=== PATIENT | male | born 1980 | race Caucasian/White ===

== ENCOUNTER 2017-03-16 10:27 | Inpatient (IN) | payer OTHER ==
--- NOTE | 2017-03-16 14:39 | HP ---
CIWA Score - CIWA Score Nausea/Vomitin-Int. Nausea w/Dry Heave Muscle Tremors: 4-Moderate,w/Arms Extend Anxiety: 5 Agitation: 4-Moderately Restless Paroxysmal Sweats: 1-Minimal Palms Moist Orientation: 0-Oriented Tacttile Disturbances: 3-Moderate Itch/Numb/Burn Auditory Disturbances: 0-None Visual Disturbances: 0-None Headache: 0-None Present CIWA-Ar Total Score: 21 Admission ROS BHS - HPI Chief Complaint: DETOX TX FOR ALCOHOL AND XANAX DEPENDENCE Allergies/Adverse Reactions: Allergies Allergy/AdvReac Type Severity Reaction Status Date / Time No Known Allergies Allergy Verified 03/16/17 12:16 History of Present Illness: 36 Y/O H/M WITH A HX OF ALCOHOL,XANAX A HEROIN DEPENDENCE ON [facility] SEEKING DETOX TX . FIRST TIME HERE. Exam Limitations: No Limitations - Ebola screening Have you traveled outside of the country in the last 21 days: No Have you had contact with anyone from an Ebola affected area: No Do you have a fever: No - Review of Systems Constitutional: Chills, Diaphoresis, Loss of Appetite, Night Sweats, Changes in sleep EENT: reports: Blurred Vision, Tearing, Nose Congestion Respiratory: reports: No Symptoms reported Cardiac: reports: Lightheadedness GI: reports: Constipated, Diarrhea, Nausea, Vomiting : reports: No Symptoms Reported Musculoskeletal: reports: Back Pain, Joint Pain, Muscle Pain Integumentary: reports: No Symptoms Reported Neuro: reports: Headache, Tremors Endocrine: reports: No Symptoms Reported Hematology: reports: No Symptoms Reported Psychiatric: reports: Orientated x3, Anxious, Depressed Other Systems: Reviewed and Negative Patient History - Patient Medical History Hx Anemia: No Hx Asthma: No Hx Chronic Obstructive Pulmonary Disease (COPD): No Hx Cardiac Disorders: No Hx Hypertension: No Hx Hypercholesterolemia: No HX Cerebrovascular Accident: No Hx Seizures: No Hx Diabetes: No Hx Gastrointestinal Disorders: No Hx Genitourinary Disorders: No Hx Sexually Transmitted Disorders: No Hx Renal Disease (ESRD): No Hx Thyroid Disease: No Hx Human Immunodeficiency Virus (HIV): No (NEGATIVE HX) Hx Hepatitis C: No Hx Depression: No Hx Suicide Attempt: No Hx Bipolar Disorder: No Hx Schizophrenia: No - Patient Surgical History Past Surgical History: No Hx Neurologic Surgery: No Hx Cataract Extraction: No Hx Cardiac Surgery: No Hx Lung Surgery: No Hx Breast Surgery: No Hx Breast Biopsy: No Hx Abdominal Surgery: No Hx Appendectomy: No Hx Cholecystectomy: No Hx Genitourinary Surgery: No Hx Orthopedic Surgery: No Anesthesia Reaction: No - PPD History Previous Implant?: Yes Documented Results: Negative w/o proof Implanted On Prior [facility] Admission?: No PPD to be Administered?: Yes - Reproductive History Patient is a Female of Child Bearing Age (11 -55 yrs old): No (MALE) - Smoking Cessation Smoking history: Smoker current status UNK Have you smoked in the past 12 months: Yes If you are a former smoker, when did you quit?: 12/2016-ON [facility] AT HOME. Hx Chewing Tobacco Use: No Initiated information on smoking cessation: No 'Breaking Loose' booklet given: 03/16/17 - Substance & Tx. History Hx Alcohol Use: Yes (VODKA) Hx Substance Use: Yes (XANAX/HEROIN) Substance Use Type: Alcohol, Heroin, Tranquilizers Hx Substance Use Treatment: Yes (ON [facility]) - Substances Abused Alcohol Route: Oral Frequency: Daily Amount used: Vodka(2 pints) Age of first use: 19 Date of Last Use: 03/15/17 Alprazolam (Xanax) Route: Oral Frequency: Daily Amount used: 2-3 stiks Age of first use: 35 Date of Last Use: 03/16/17 Heroin Route: Inhalation Frequency: Daily Amount used: 8-10 bags Age of first use: 26 Date of Last Use: 03/16/17 Family Disease History - Family Disease History Family Disease History: Diabetes: Grandparent Admission Physical Exam [facility] Physical General Appearance: Yes: Moderate Distress, Obese, Irritable, Anxious HEENTM: Yes: EOMI, Normocephalic, DANIEL, Pharynx Normal, Nasal Congestion Respiratory: Yes: Chest Non-Tender, Lungs Clear, Normal Breath Sounds, No Respiratory Distress Neck: Yes: Supple, Trachea in good position Breast: Yes: Breast Exam Deferred Cardiology: Yes: Regular Rhythm, Regular Rate, S1, S2 Abdominal: Yes: Normal Bowel Sounds, Non Tender, Soft Genitourinary: Yes: Other (N/C) Musculoskeletal: Yes: full range of Motion, Gait Steady Extremities: Yes: Normal Range of Motion, Non-Tender Neurological: Yes: non morse intercept technician II-XII NML intact, Fully Oriented, Alert, Motor Strength 5/5 Integumentary: Yes: Dry, Warm Lymphatic: Yes: Within Normal Limits - Diagnostic (1) Alcohol dependence with uncomplicated withdrawal Current Visit: Yes Status: Acute (2) Sedative, hypnotic or anxiolytic dependence with withdrawal, uncomplicated Current Visit: Yes Status: Acute (3) Methadone maintenance therapy patient Current Visit: Yes Status: Chronic Cleared for Admission S - Detox or Rehab [facility] Level of Care: Medically Managed Detox Regimen/Protocol: Valium
[2017-03-16] MEDS ORDERED: guaiFENesin/D-METHORPHAN HB 10 ML UNIT-DOSE CUPS PO PRN (14:50)
[2017-03-16] MEDS ORDERED: hydrOXYzine PAMOATE 25 MG CAPSULE (FP) PO PRN (14:50)
[2017-03-16] MEDS ORDERED: ACETAMINOPHEN 325 MG TABLET (FP) PO PRN (14:50)
[2017-03-16] MEDS ORDERED: P-EPHED 60MG/TRIPROLIDI 2.5MG TABLET PO PRN (14:50)
[2017-03-16] MEDS ORDERED: MAGNESIUM HYDROX 2400MG/30ML ORAL SUSPENSION 30 ML CUP PO PRN (14:50)
[2017-03-16] MEDS ORDERED: MENTHOL/PHENOL 1 EACH UD MM PRN (14:50)
[2017-03-16] MEDS ORDERED: LOPERAMIDE HCL 2 MG CAPSULE PO PRN (14:50)
[2017-03-16] MEDS ORDERED: MAG HYDROX/AL HYDROX/SIMETH 30 ML UNIT-DOSE CUP PO PRN (14:50)
[2017-03-16] MEDS ORDERED: IBUPROFEN 400 MG TABLET (FP) PO PRN (14:50)
[2017-03-16] MEDS ORDERED: MAGNESIUM CITRATE 300 ML BOTTLE PO PRN (14:50)
[2017-03-16] MEDS ORDERED: NICOTINE POLACRILEX 2 MG GUM BUC PRN (14:52)
[2017-03-16] MEDS ORDERED: diazePAM 5 MG TABLET PO ONE (15:07)
[2017-03-16 15:12] VITALS: BMI 40.6
[2017-03-16] MEDS: diazePAM 5 MG TABLET PO SCH ×2 (15:45→22:26)
[2017-03-16] MEDS: NICOTINE 14 MG/24 HOURS TOPICAL PATCH TD SCH (15:48)
[2017-03-16] MEDS: THIAMINE HCL 100 MG TABLET (FP) PO SCH (22:26)
[2017-03-16] MEDS: diphenhydrAMINE HCL 50 MG CAPSULE PO PRN (22:27)
[2017-03-16] MEDS: diazePAM 5 MG TABLET PO PRN (22:28)
[2017-03-17] MEDS: diazePAM 5 MG TABLET PO SCH ×3 (06:02→23:14)
[2017-03-17] MEDS ORDERED: METHADONE HCL 40 MG DISPERSABLE TABLET PO ONE (09:54)
[2017-03-17 10:11] LABS: MCH 27.4 pg (25.7-33.7); MCHC 32.6 g/dl (32.0-35.9); MEAN CELL VOLUME 83.9 fl (80-96); MEAN PLT VOLUME 8.6 fl (7.5-11.1); PLATELET COUNT 228 K/MM3 (134-434); WHITE BLOOD COUNT 8.2 K/mm3 (4.0-10.0)
[2017-03-17 10:35] LABS: URINE APPEARANCE CLEAR; URINE BILIRUBIN NEGATIVE (NEGATIVE); URINE BLOOD NEGATIVE (NEGATIVE); URINE COLOR YELLOW; URINE GLUCOSE (UA) NEGATIVE (NEGATIVE); URINE KETONE NEGATIVE (NEGATIVE); URINE LEUK ESTERASE NEGATIVE (NEGATIVE); URINE NITRITE NEGATIVE (NEGATIVE); URINE PROTEIN NEGATIVE (NEGATIVE); URINE UROBILINOGEN NEGATIVE E.U./dl (0.2-1.0)
[2017-03-17 10:50] LABS: ALBUMIN 3.9 g/dl (3.4-5.0); ALK PHOS 103 U/L (45-117); ANION GAP 8 (8-16); BILIRUBIN,TOTAL 0.3 mg/dL (0.2-1.0); CALCIUM 9.2 mg/dL (8.5-10.1); CO2 34 mmol/L (21-32); COCKROFT - GAULT 259.87; CREATININE 0.7 mg/dL (0.7-1.3); GLUCOSE,RANDOM 79 mg/dL (74-106); SGOT/AST 18 U/L (15-37); SGPT/ALT 42 U/L (12-78); TOT PROT 8.1 g/dl (6.4-8.2)
[2017-03-17] MEDS: PRENATAL VITAMINS W/ FOLIC ACID TABLET (FP) PO SCH (10:50)
[2017-03-17] MEDS: NICOTINE 14 MG/24 HOURS TOPICAL PATCH TD SCH (10:50)
[2017-03-17] MEDS: diazePAM 5 MG TABLET PO PRN ×2 (10:50→17:15)
--- NOTE | 2017-03-17 11:03 | PN ---
S CIWA - CIWA Score Nausea/Vomitin-No Nausea/No Vomiting Muscle Tremors: 4-Moderate,w/Arms Extend Anxiety: 3 Agitation: 4-Moderately Restless Paroxysmal Sweats: 3 Orientation: 0-Oriented Tacttile Disturbances: 0-None Auditory Disturbances: 0-None Visual Disturbances: 0-None Headache: 1-Very Mild CIWA-Ar Total Score: 15 BHS Progress Note (SOAP) Subjective: irritable agitation anxiety sweats body aches shakes Objective: 03/17/17 11:02 Vital Signs Temperature 97.9 F 03/17/17 09:46 Pulse Rate 78 03/17/17 09:46 Respiratory Rate 18 03/17/17 09:46 Blood Pressure 105/58 03/17/17 09:46 O2 Sat by Pulse Oximetry (%) Laboratory Tests 03/17/17 03/17/17 06:00 07:30 WBC 8.2 RBC 5.08 Hgb 13.9 Hct 42.6 MCV 83.9 MCHC 32.6 RDW 14.0 Plt Count 228 MPV 8.6 Urine Color Yellow Urine Appearance Clear Urine pH 6.0 Ur Specific [place] 1.020 Urine Protein Negative Urine Glucose (UA) Negative Urine Ketones Negative Urine Blood Negative Urine Nitrite Negative Urine Bilirubin Negative Urine Urobilinogen Negative Ur Leukocyte Esterase Negative labs pending awake/alert ambulating no acute distress Assessment: 03/17/17 11:03 withdrawal sx Plan: continue detox increase fluids labs pending
--- NOTE | 2017-03-17 12:51 | CONSULT ---
[facility] Psychiatric Consult - Data Date of interview: 03/17/17 Admission source: [facility] Identifying data: First admission to [facility] for this 36 y/o male seeking detox treatment for heroin,alcohol and xanax dependence.Patient is single,a father of two,domiciled,unemployed and supported on Public Assistance. Substance Abuse History: - Smoking Cessation. Smoking history: Smoker current status UNK. Have you smoked in the past 12 months: Yes. If you are a former smoker, when did you quit?: 12/2016-ON [facility] AT HOME. Hx Chewing Tobacco Use : No. Initiated information on smoking cessation: No. 'Breaking Loose' booklet given: 03/16/17. - Substance & Tx. History. Hx Alcohol Use: Yes (VODKA ). Hx Substance Use: Yes (XANAX/HEROIN). Substance Use Type: Alcohol, Heroin, Tranquilizers. Hx Substance Use Treatment: Yes (ON [facility]). - Substances Abused. Alcohol. Route: Oral. Frequency: Daily. Amount used: Vodka(2 pints). Age of first use: 19. Date of Last Use: 03/15/17. Alprazolam ( Xanax). Route: Oral. Frequency: Daily. Amount used: 2-3 stiks. Age of first use: 35. Date of Last Use: 03/16/17. Heroin. Route: Inhalation. Frequency : Daily. Amount used: 8-10 bags. Age of first use: 26. Date of Last Use: . Confirmed by patient. Medical History: Patient endorses good general health. Psychiatric History: Patient denies history of psychiatric hospitalizations.He, however,reports scripts for seroquel to address his chronic insomnia and methadone maintenance (40 mg/day) at the [facility] in [facility].Diagnosed with Anxiety Disorder.Mr Osei denies history of suicide attempts. Physical/Sexual Abuse/Trauma History: Patient denies. Mental Status Exam - Mental Status Exam Alert and Oriented to: Time, Place, Person Cognitive Function: Good Patient Appearance: Well Groomed (overweight and upper extremities covered with tattoos) Mood: Anxious, Apprehensive Affect: Mood Congruent Patient Behavior: Restless, Talkative, Cooperative (medication-seeking, pressuring nursing staff for seroquel at bedtime) Speech Pattern: Clear Voice Loudness: Normal Thought Process: Goal Oriented Thought Disorder: Not Present Hallucinations: Denies Suicidal Ideation: Denies Homicidal Ideation: Denies Insight/Judgement: Poor Sleep: Poorly, Difficulty falling asleep Appetite: Good Muscle strength/Tone: Normal Gait/Station: Normal Psychiatric Findings - Problem List ([place] 1, 2,3) (1) Alcohol dependence with uncomplicated withdrawal Current Visit: Yes Status: Acute (2) Sedative, hypnotic or anxiolytic dependence with withdrawal, uncomplicated Current Visit: Yes Status: Acute (3) Opioid dependence on agonist therapy Current Visit: Yes Status: Acute (4) Insomnia Current Visit: Yes Status: Acute - Initial Treatment Plan Initial Treatment Plan: Psychoeducation.Detoxification in progress.Medication : seroquel 100 mg po hs (patient's request).Side effects/benefits discussed with the patient.Made aware of risk for oversedation/falls,abnormal involuntary movements,metabolic syndrome and cardiovascular adverse events.Mr Osei states that he has well tolerated seroquel in the past.Insists on the inclusion of quetiapine in the current regimen of medications.Observation.
[2017-03-17] MEDS: QUEtiapine FUMARATE 100 MG TABLET (FP) PO SCH (23:14)
[2017-03-17] MEDS: THIAMINE HCL 100 MG TABLET (FP) PO SCH (23:14)
[2017-03-18] MEDS: METHADONE HCL 40 MG DISPERSABLE TABLET PO SCH (06:39)
--- NOTE | 2017-03-18 08:27 | EKG ---
Test Reason : Blood Pressure : / mmHG Vent. Rate : 083 BPM Atrial Rate : 083 BPM P-R Int : 174 ms QRS Dur : 108 ms QT Int : 402 ms P-R-T Axes : 065 -02 028 degrees QTc Int : 472 ms NORMAL SINUS RHYTHM NONSPECIFIC T WAVE ABNORMALITY PROLONGED QT ABNORMAL ECG NO PREVIOUS ECGS AVAILABLE Confirmed by REGINA LEARY, IMTIAZ ([id number]) on 03/18/2017 8:27:08 AM Referred By: Confirmed By:IMTIAZ TAPIA MD
[2017-03-18] MEDS: NICOTINE 14 MG/24 HOURS TOPICAL PATCH TD SCH (10:46)
[2017-03-18] MEDS: PRENATAL VITAMINS W/ FOLIC ACID TABLET (FP) PO SCH (10:46)
[2017-03-18] MEDS: diazePAM 5 MG TABLET PO SCH ×2 (10:46→22:16)
--- NOTE | 2017-03-18 16:27 | PN ---
[facility] CIWA - CIWA Score Nausea/Vomitin Muscle Tremors: 3 Anxiety: 3 Agitation: 3 Paroxysmal Sweats: 3 Orientation: 0-Oriented Tacttile Disturbances: 1-Very Mild Itch/Numbness Auditory Disturbances: 0-None Visual Disturbances: 0-None Headache: 0-None Present CIWA-Ar Total Score: 15 S Progress Note (SOAP) Subjective: INTERRRUPTED SLEEP,SWEATS , RESTLESS Objective: 03/18/17 16:26 Vital Signs Temperature 97 F L 03/18/17 14:09 Pulse Rate 87 03/18/17 14:09 Respiratory Rate 18 03/18/17 14:09 Blood Pressure 121/65 03/18/17 14:09 O2 Sat by Pulse Oximetry (%) Laboratory Tests 03/17/17 03/17/17 03/17/17 06:00 06:00 06:00 WBC 8.2 RBC 5.08 Hgb 13.9 Hct 42.6 MCV 83.9 MCHC 32.6 RDW 14.0 Plt Count 228 MPV 8.6 Sodium 141 Potassium 4.6 Chloride 99 Carbon Dioxide 34 H Anion Gap 8 BUN 15 Creatinine 0.7 Creat Clearance w eGFR > 60 Random Glucose 79 Calcium 9.2 Total Bilirubin 0.3 AST 18 ALT 42 Alkaline Phosphatase 103 Total Protein 8.1 Albumin 3.9 Urine Color Urine Appearance Urine pH Ur Specific [place] Urine Protein Urine Glucose (UA) Urine Ketones Urine Blood Urine Nitrite Urine Bilirubin Urine Urobilinogen Ur Leukocyte Esterase RPR Titer Nonreactive 03/17/17 07:30 WBC RBC Hgb Hct MCV MCHC RDW Plt Count MPV Sodium Potassium Chloride Carbon Dioxide Anion Gap BUN Creatinine Creat Clearance w eGFR Random Glucose Calcium Total Bilirubin AST ALT Alkaline Phosphatase Total Protein Albumin Urine Color Yellow Urine Appearance Clear Urine pH 6.0 Ur Specific [place] 1.020 Urine Protein Negative Urine Glucose (UA) Negative Urine Ketones Negative Urine Blood Negative Urine Nitrite Negative Urine Bilirubin Negative Urine Urobilinogen Negative Ur Leukocyte Esterase Negative RPR Titer PT AOX3 , RESTLESS Assessment: 03/18/17 16:26 WITHDRAWAL SX;S Plan: CONT. DETOX INCREASE FLUIDS FLEXERIL
[2017-03-18] MEDS: CYCLOBENZAPRINE HCL 10 MG TABLET (FP) PO PRN (17:40)
[2017-03-18] MEDS: diazePAM 5 MG TABLET PO PRN (17:40)
[2017-03-18] MEDS: QUEtiapine FUMARATE 100 MG TABLET (FP) PO SCH (22:16)
[2017-03-18] MEDS: THIAMINE HCL 100 MG TABLET (FP) PO SCH (22:16)
[2017-03-19] MEDS: METHADONE HCL 40 MG DISPERSABLE TABLET PO SCH (06:04)
[2017-03-19] MEDS: CYCLOBENZAPRINE HCL 10 MG TABLET (FP) PO PRN (06:10)
[2017-03-19] MEDS: diazePAM 5 MG TABLET PO PRN (06:10)
[2017-03-19] MEDS: diazePAM 5 MG TABLET PO SCH ×2 (11:03→22:45)
[2017-03-19] MEDS: PRENATAL VITAMINS W/ FOLIC ACID TABLET (FP) PO SCH (11:03)
[2017-03-19] MEDS: NICOTINE 14 MG/24 HOURS TOPICAL PATCH TD SCH (11:03)
--- NOTE | 2017-03-19 12:26 | PN ---
BHS Progress Note (SOAP) Subjective: body aches sweats headache Objective: 03/19/17 12:25 Vital Signs Temperature 97.7 F 03/19/17 06:37 Pulse Rate 93 H 03/19/17 09:48 Respiratory Rate 18 03/19/17 09:48 Blood Pressure 124/68 03/19/17 09:48 O2 Sat by Pulse Oximetry (%) awake/alert ambulating no acute distress Assessment: 03/19/17 12:25 withdrawal sx Plan: continue detox d/c in am
[2017-03-19 17:33] VITALS: TEMP 97.7
[2017-03-19] MEDS: THIAMINE HCL 100 MG TABLET (FP) PO SCH (22:45)
[2017-03-19] MEDS: QUEtiapine FUMARATE 100 MG TABLET (FP) PO SCH (22:45)
[2017-03-19] MEDS: diphenhydrAMINE HCL 50 MG CAPSULE PO PRN (22:46)
[2017-03-20] MEDS: METHADONE HCL 40 MG DISPERSABLE TABLET PO SCH (05:48)
[2017-03-20] MEDS ORDERED: diazePAM 5 MG TABLET PO SCH ×2 (06:00→10:00)
[2017-03-20 06:47] VITALS: BP 112/67; PULSE 73
--- NOTE | 2017-03-20 08:11 | PN ---
S Progress Note (SOAP) Subjective: alert,no complaint Objective: 03/20/17 08:10 Vital Signs Temperature 97.7 F 03/20/17 06:00 Pulse Rate 73 03/20/17 06:00 Respiratory Rate 18 03/20/17 06:00 Blood Pressure 112/67 03/20/17 06:00 O2 Sat by Pulse Oximetry (%) Assessment: 03/20/17 08:10 detox completed,no withdrawal symptom Plan: discharge today,follow up with after care program as arrangement
--- NOTE | 2017-03-20 08:14 | DS ---
[facility] Detox Discharge Summary Admission Date: 03/16/17 Discharge Date: 03/20/17 - History Present History: Alcohol Dependence, Sedative Dependence, MMTP Additional Comments: follow up with after care program as arrangement Pertinent Past History: insomnia - Physical Exam Results Vital Signs: Vital Signs Temperature 97.7 F 03/20/17 06:00 Pulse Rate 73 03/20/17 06:00 Respiratory Rate 18 03/20/17 06:00 Blood Pressure 112/67 03/20/17 06:00 O2 Sat by Pulse Oximetry (%) Pertinent Admission Physical Exam Findings: withdrawal symptom - Treatment Hospital Course: Detox Protocol Followed, Detoxed Safely, Responded well, Discharged Condition Good Patient has Accepted a Rehab Referral to: declined - Medication Discharge Medications: Ambulatory Orders Quetiapine Fumarate [Seroquel] 100 mg PO HS #30 tablet 03/17/17 Hydroxyzine Pamoate [Vistaril -] 50 mg PO TID #90 capsule 03/19/17 - Diagnosis (1) Alcohol dependence with uncomplicated withdrawal Status: Acute (2) Insomnia Status: Acute (3) Opioid dependence on agonist therapy Status: Acute (4) Sedative, hypnotic or anxiolytic dependence with withdrawal, uncomplicated Status: Acute - AMA Did Patient Leave Against Medical Advice: No
== END 2017-03-20 07:25 | disposition home or self-care (01) | DRG 773 ==
LOC: YASAS 10:27 → Y6N 13:44
PROVIDERS: ADMIT Internal Medicine Addiction Medicine; ATTEND Internal Medicine Addiction Medicine
PROC: HZ2ZZZZ Detoxification Services for Substance Abuse Treatment (ICD-10-PCS; principal; 2017-03-20)
DX: F11.20 Opioid dependence, uncomplicated (principal); F13.230 Sedative, hypnotic or anxiolytic dependence with withdrawal, uncomplicated; F10.230 Alcohol dependence with withdrawal, uncomplicated; G47.00 Insomnia, unspecified
CPT/HCPCS: 36415; 80053; 81003; 85027; 86593; 93005; 93010

== ENCOUNTER 2017-06-22 14:39 | Inpatient (IN) | payer OTHER ==
[2017-06-22 16:17] VITALS: BMI 37.8
--- NOTE | 2017-06-22 18:26 | HP ---
COWS - Scale Resting Pulse: 1= [place] 81-100 Sweatin=Flushed/Facial Moisture Restless Observation: 3= Extraneous Movement Pupil Size: 2= Moderately Dilated Bone or Joint Aches: 2= Severe Diffuse Aches Runny Nose/ Eye Tearin= Runny Nose/Eyes GI Upset > 30mins: 3= Vomiting/Diarrhea Tremor Observation: 2= Slight Tremor Visible Yawning Observation: 2= >3x During Session Anxiety or Irritability: 2=Irritable/Anxious Goose Flesh Skin: 0=Smooth Skin COWS Score: 21 Admission ROS S - HPI Chief Complaint: I AM HERE TO DETOX FROM HEROIN Allergies/Adverse Reactions: Allergies Allergy/AdvReac Type Severity Reaction Status Date / Time No Known Allergies Allergy Verified 06/22/17 17:20 History of Present Illness: THIS 36 YEARS OLD MALE WITH HEROIN DEPENDENCE,SEEKING DETOX,LAST TREATMENT [facility] 03/16/17 TO 03/20/17 ANXIETY AND DEPRESSION NICOTINE DEPENDENCE MULTIPLES ADMISSIONS IN THE PAST LONGEST PERIOD OF SOBRIETY 1 YEAR HEPATITIS C TREATED - Ebola screening Have you traveled outside of the country in the last 21 days: No Have you had contact with anyone from an Ebola affected area: No Have you been sick,other than usual withdrawal symptoms: No Do you have a fever: No - Review of Systems Constitutional: Chills, Diaphoresis, Loss of Appetite, Malaise, Night Sweats, Changes in sleep, Weakness EENT: reports: Tearing, Nose Congestion Respiratory: reports: No Symptoms reported Cardiac: reports: Palpitations GI: reports: Diarrhea, Nausea, Vomiting, Abdominal cramping : reports: No Symptoms Reported Musculoskeletal: reports: Back Pain, Joint Pain, Muscle Pain, Joint Stiffness Integumentary: reports: Dryness Neuro: reports: Headache, Tremors Endocrine: reports: No Symptoms Reported Hematology: reports: No Symptoms Reported Psychiatric: reports: Judgement Intact, Mood/Affect Appropiate, Orientated x3, Anxious, Depressed Patient History - Patient Medical History Hx Anemia: No Hx Asthma: No Hx Chronic Obstructive Pulmonary Disease (COPD): No Hx Cardiac Disorders: No Hx Hypertension: No Hx Hypercholesterolemia: No HX Cerebrovascular Accident: No Hx Seizures: No Hx Diabetes: No Hx Gastrointestinal Disorders: No Hx Genitourinary Disorders: No Hx Sexually Transmitted Disorders: No Hx Renal Disease (ESRD): No Hx Thyroid Disease: No Hx Human Immunodeficiency Virus (HIV): No (NEGATIVE HX LAST 03/16/17) Hx Hepatitis C: No Hx Depression: Yes (ANXIETY) Hx Suicide Attempt: No Hx Bipolar Disorder: No Hx Schizophrenia: No Other Medical History: NO SUICIDAL,NO HOMICIDAL - Patient Surgical History Past Surgical History: No Hx Neurologic Surgery: No Hx Cataract Extraction: No Hx Cardiac Surgery: No Hx Lung Surgery: No Hx Breast Surgery: No Hx Breast Biopsy: No Hx Abdominal Surgery: No Hx Appendectomy: No Hx Cholecystectomy: No Hx Genitourinary Surgery: No Hx Orthopedic Surgery: No Anesthesia Reaction: No - PPD History Previous Implant?: Yes Documented Results: Negative w/proof Date: 03/18/17 Results: 0 MM PPD to be Administered?: No - Smoking Cessation Smoking history: Smoker current status UNK Have you smoked in the past 12 months: Yes Aproximately how many cigarettes per day: 5 If you are a former smoker, when did you quit?: YES Cigars Per Day: 0 Hx Chewing Tobacco Use: No Initiated information on smoking cessation: No 'Breaking Loose' booklet given: 06/22/17 - Substance & Tx. History Hx Alcohol Use: No Hx Substance Use: Yes Substance Use Type: Heroin Hx Substance Use Treatment: Yes ([facility] 03/16/17 TO 03/20/17) - Substances Abused Heroin Route: Inhalation Frequency: Daily Amount used: 5 BAGS Age of first use: 26 Date of Last Use: 06/22/17 Family Disease History - Family Disease History Family Disease History: Diabetes: Grandparent Admission Physical Exam BHS - Vital Signs Vital Signs: Vital Signs - 24 hr 06/22/17 16:15 Temperature 98.7 F Pulse Rate 100 H Respiratory 18 Rate Blood Pressure 123/83 - Physical General Appearance: Yes: Moderate Distress, Tremorous, Irritable, Sweating, Anxious HEENTM: Yes: Normal ENT Inspection, DANIEL, Pharynx Normal Respiratory: Yes: Lungs Clear, Normal Breath Sounds, No Respiratory Distress Neck: Yes: Within Normal Limits, Supple, Trachea in good position Breast: Yes: Within Normal Limits Cardiology: Yes: Tachycardia Abdominal: Yes: Within Normal Limits, Normal Bowel Sounds, Non Tender, Soft Genitourinary: Yes: Within Normal Limits Back: Yes: Within Normal Limits, Normal Inspection, Muscle Spasm Musculoskeletal: Yes: full range of Motion, Back pain, Joint Stiffness, Muscle Pain Extremities: Yes: Within Normal Limits, Normal Range of Motion, Tremors Neurological: Yes: dairy nutrition consultant II-XII NML intact, Fully Oriented, Alert, Motor Strength 5/5 Integumentary: Yes: Dry Lymphatic: Yes: Within Normal Limits - Diagnostic (1) Opioid dependence with withdrawal Current Visit: Yes Status: Acute (2) Anxiety and depression Current Visit: Yes Status: Acute (3) Nicotine dependence Current Visit: Yes Status: Acute (4) Insomnia Current Visit: No Status: Acute Cleared for Admission [facility] - Detox or Rehab [facility] Level of Care: Medically Managed Detox Regimen/Protocol: Methadone [facility] Breath Alcohol Content Breath Alcohol Content: 0 Urine Drug Screen - Results Drug Screen Negative: No Urine Drug Screen Results: OPI-Opiates, BZO-Benzodiazepines, OXY-Oxycodone
[2017-06-22] MEDS ORDERED: MAGNESIUM CITRATE 300 ML BOTTLE PO PRN (18:39)
[2017-06-22] MEDS ORDERED: diphenhydrAMINE HCL 50 MG CAPSULE PO PRN (18:39)
[2017-06-22] MEDS ORDERED: ACETAMINOPHEN 325 MG TABLET (FP) PO PRN (18:39)
[2017-06-22] MEDS ORDERED: MAGNESIUM HYDROX 2400MG/30ML ORAL SUSPENSION 30 ML CUP PO PRN (18:39)
[2017-06-22] MEDS ORDERED: guaiFENesin/D-METHORPHAN HB 10 ML UNIT-DOSE CUPS PO PRN (18:39)
[2017-06-22] MEDS ORDERED: MAG HYDROX/AL HYDROX/SIMETH 30 ML UNIT-DOSE CUP PO PRN (18:39)
[2017-06-22] MEDS ORDERED: METHADONE HCL 10 MG TABLET (FOR DETOX USE ONLY) PO ONE ×2 (18:39→23:00)
[2017-06-22] MEDS ORDERED: IBUPROFEN 400 MG TABLET (FP) PO PRN (18:39)
[2017-06-22] MEDS ORDERED: LOPERAMIDE HCL 2 MG CAPSULE PO PRN (18:39)
[2017-06-22] MEDS ORDERED: P-EPHED 60MG/TRIPROLIDI 2.5MG TABLET PO PRN (18:39)
[2017-06-22] MEDS ORDERED: MENTHOL/PHENOL 1 EACH UD MM PRN (18:39)
[2017-06-22] MEDS ORDERED: hydrOXYzine PAMOATE 25 MG CAPSULE (FP) PO PRN (18:39)
[2017-06-22] MEDS: diazePAM 5 MG TABLET PO PRN (19:54)
[2017-06-22] MEDS: cloNIDine HCL 0.1 MG TABLET PO SCH (22:48)
[2017-06-22] MEDS: THIAMINE HCL 100 MG TABLET (FP) PO SCH (22:48)
[2017-06-23] MEDS ORDERED: METHADONE HCL 10 MG TABLET (FOR DETOX USE ONLY) PO ONE (10:00)
[2017-06-23] MEDS: PRENATAL VITAMINS W/ FOLIC ACID TABLET (FP) PO SCH (10:20)
[2017-06-23] MEDS: cloNIDine HCL 0.1 MG TABLET PO SCH ×2 (10:20→22:27)
[2017-06-23 10:24] LABS: MCH 27.8 pg (25.7-33.7); MCHC 33.9 g/dl (32.0-35.9); MEAN CELL VOLUME 81.8 fl (80-96); MEAN PLT VOLUME 7.7 fl (7.5-11.1); PLATELET COUNT 219 K/MM3 (134-434); RDW 15.2 % (11.9-15.9)
--- NOTE | 2017-06-23 11:48 | PN ---
BHS COWS - Scale Resting Pulse: 0= [place] 80 or Below Sweatin= Chills/Flushing Restless Observation: 3= Extraneous Movement Pupil Size: 1= Pupils >than Normal Bone or Joint Aches: 2= Severe Diffuse Aches Runny Nose/ Eye Tearin= Runny Nose/Eyes GI Upset > 30mins: 2= Nausea/Diarrhea Tremor Observation of Outstretched Hands: 2= Slight Tremor Visible Yawning Observation: 1= 1-2x During Session Anxiety or Irritability: 2=Irritable/Anxious Goose Flesh Skin: 0=Smooth Skin COWS Score: 16 S Progress Note (SOAP) Subjective: ALERT,IRRITABLE,ANXIOUS,INTERRUPTED SLEEP,TREMOR,PAIN IN THE BODY AND BACK Objective: 06/23/17 11:46 Vital Signs Temperature 97.9 F 06/23/17 06:12 Pulse Rate 55 L 06/23/17 06:12 Respiratory Rate 16 06/23/17 06:12 Blood Pressure 91/50 06/23/17 06:12 O2 Sat by Pulse Oximetry (%) EKG NSR,NORMAL ECG Laboratory Last Values WBC 6.0 K/mm3 (4.0-10.0) 06/23/17 06:30 RBC 4.39 M/mm3 (4.00-5.60) 06/23/17 06:30 Hgb 12.2 GM/dL (11.7-16.9) D 06/23/17 06:30 Hct 35.9 % (35.4-49) D 06/23/17 06:30 MCV 81.8 fl (80-96) 06/23/17 06:30 MCH 27.8 pg (25.7-33.7) 06/23/17 06:30 MCHC 33.9 g/dl (32.0-35.9) 06/23/17 06:30 RDW 15.2 % (11.9-15.9) 06/23/17 06:30 Plt Count 219 K/MM3 (134-434) 06/23/17 06:30 MPV 7.7 fl (7.5-11.1) D 06/23/17 06:30 LABS PENDING Assessment: 06/23/17 11:46 WITHDRAWAL SYMPTOM Plan: CONTINUE DETOX,PHYCHIATRIC EVALUATION FOR INSOMNIA
[2017-06-23 12:02] LABS: ALBUMIN 3.1 g/dl (3.4-5.0); ALK PHOS 73 U/L (45-117); ANION GAP 7 (8-16); BILIRUBIN,TOTAL 0.2 mg/dL (0.2-1.0); CALCIUM 8.5 mg/dL (8.5-10.1); CO2 34 mmol/L (21-32); CREATININE 0.6 mg/dL (0.7-1.3); GLUCOSE,RANDOM 97 mg/dL (74-106); SGOT/AST 14 U/L (15-37); SGPT/ALT 37 U/L (12-78); TOT PROT 5.9 g/dl (6.4-8.2)
[2017-06-23] MEDS: diazePAM 5 MG TABLET PO PRN ×2 (12:19→22:27)
--- NOTE | 2017-06-23 13:10 | CONSULT ---
[facility] Psychiatric Consult - Data Date of interview: 06/23/17 Admission source: [facility] Identifying data: Readmission to [facility] for this 36 y/o male seeking detox treatment on for heroin dependence.Patient is single,a father of two,domiciled,unemployed and supported on Public Assistance. Substance Abuse History: Discussed in detail with the patient at this interview.Mr Osei confirms this report : Smoking Cessation. Smoking history: Smoker current status UNK. Have you smoked in the past 12 months: Yes. Aproximately how many cigarettes per day: 5. If you are a former smoker, when did you quit?: YES. Cigars Per Day: 0. Hx Chewing Tobacco Use: No. Initiated information on smoking cessation: No. 'Breaking Loose' booklet given : 06/22/17. - Substance & Tx. History. Hx Alcohol Use: No. Hx Substance Use: Yes. Substance Use Type: Heroin. Hx Substance Use Treatment: Yes ([facility] TO 03/20/17). - Substances Abused. Heroin. Route: Inhalation. Frequency: Daily. Amount used: 5 BAGS. Age of first use: 26. Date of Last Use : 06/22/17 Medical History: No reported medical problems. Psychiatric History: Patient admits to a history of one psychiatric hospitalization at [facility] (discharged two weeks ago) .Diagnosed with MDD and Anxiety Disorder.Mr Osei reports current OPD care at the [facility] in the [place] (under the care of Dr Rainey).Patient states that he is on prozac,haloperidol,trazodone and seroquel.He is not a reliable historian : contact with pharmacist at [facility] ( ) established that the patient is no longer on seroquel and that haldol is a recent addition as of 06/14/17 (rationale ??) to the regimen.Patient denies history of suicide attempts. Physical/Sexual Abuse/Trauma History: Patient denies. Additional Comment: Urine Drug Screen Results: OPI-Opiates, BZO-Benzodiazepines , OXY-Oxycodone.Noted. Mental Status Exam - Mental Status Exam Alert and Oriented to: Time, Place, Person Cognitive Function: Good Patient Appearance: Well Groomed (tattoos on both forearms) Mood: Withdrawn, Apprehensive Affect: Mood Congruent Patient Behavior: Fatigued, Cooperative (superficially cooperative) Speech Pattern: Clear Voice Loudness: Normal Thought Process: Goal Oriented Thought Disorder: Not Present Hallucinations: Denies Suicidal Ideation: Denies Homicidal Ideation: Denies Insight/Judgement: Poor Sleep: Poorly, Difficulty falling asleep Appetite: Good Muscle strength/Tone: Normal Gait/Station: Normal Psychiatric Findings - Problem List ([place] 1, 2,3) (1) Opioid dependence with withdrawal Current Visit: Yes Status: Acute (2) Nicotine dependence Current Visit: Yes Status: Acute (3) Sedative, hypnotic or anxiolytic dependence with withdrawal, uncomplicated Current Visit: Yes Status: Acute (4) Substance induced mood disorder Current Visit: Yes Status: Acute (5) MDD (major depressive disorder) Current Visit: Yes Status: Chronic Comment: Self-report. (6) Insomnia Current Visit: Yes Status: Acute - Initial Treatment Plan Initial Treatment Plan: Psychoeducation.Detoxification.Haldol is withdrawn from regimen (unclear rationale).Mr Osei indicates that he started using haldol " from the streets ".Will continue prozac 20 mg po daily + trazodone 50 mg po hs.Side effects/benefits discussed with the patient.This includes risk for priapism (trazodone) and suicidal ideation/sexual dysfunction (prozac).Patient agrees with this careplan.Observation.
[2017-06-23] MEDS: FLUoxetine HCL 20 MG CAPSULE (FP) PO SCH (14:07)
--- NOTE | 2017-06-23 14:16 | EKG ---
Test Reason : Blood Pressure : / mmHG Vent. Rate : 084 BPM Atrial Rate : 084 BPM P-R Int : 162 ms QRS Dur : 104 ms QT Int : 382 ms P-R-T Axes : 060 006 013 degrees QTc Int : 451 ms NORMAL SINUS RHYTHM NORMAL ECG WHEN COMPARED WITH ECG OF 16-MAR-2017 14:53, T WAVES ARE UPRIGHT IN PRECORDIAL LEEADS CLINICAL CORRELATION IS RECOMMENDED Confirmed by ANGELO LISA MD ([id number]) on 06/23/2017 2:15:53 PM Referred By: Confirmed By:ANGELO LSIA MD
[2017-06-23] MEDS: traZODone HCL 50 MG TABLET (FP) PO SCH (22:27)
[2017-06-23] MEDS: CYCLOBENZAPRINE HCL 10 MG TABLET (FP) PO PRN (22:27)
[2017-06-23] MEDS: THIAMINE HCL 100 MG TABLET (FP) PO SCH (22:27)
[2017-06-24] MEDS ORDERED: METHADONE HCL 5 MG TABLET (FOR DETOX USE ONLY) PO ONE (10:00)
[2017-06-24] MEDS: diazePAM 5 MG TABLET PO PRN ×3 (10:20→22:49)
[2017-06-24] MEDS: FLUoxetine HCL 20 MG CAPSULE (FP) PO SCH (10:21)
[2017-06-24] MEDS: PRENATAL VITAMINS W/ FOLIC ACID TABLET (FP) PO SCH (10:21)
[2017-06-24] MEDS: CYCLOBENZAPRINE HCL 10 MG TABLET (FP) PO PRN (10:21)
[2017-06-24] MEDS: cloNIDine HCL 0.1 MG TABLET PO SCH ×2 (10:21→22:49)
--- NOTE | 2017-06-24 10:27 | PN ---
BHS COWS - Scale Resting Pulse: 1= [place] 81-100 Sweatin=Flushed/Facial Moisture Restless Observation: 1= Difficult to Sit Still Pupil Size: 0= Normal to Room Light Bone or Joint Aches: 2= Severe Diffuse Aches Runny Nose/ Eye Tearin= Runny Nose/Eyes GI Upset > 30mins: 1= Stomach Cramp Tremor Observation of Outstretched Hands: 2= Slight Tremor Visible Yawning Observation: 0= None Anxiety or Irritability: 2=Irritable/Anxious Goose Flesh Skin: 3=Piloerection COWS Score: 16 BHS Progress Note (SOAP) Subjective: constipation anxiety sweats shakes interrupted sleep body aches Objective: 06/24/17 10:23 Vital Signs Temperature 98.2 06/24/17 10:00 Pulse Rate 83 06/24/17 10:00 Respiratory Rate 18 06/24/17 10:00 Blood Pressure 135/73 06/24/17 10:00 O2 Sat by Pulse Oximetry (%) Laboratory Tests 06/23/17 06/23/17 06/23/17 06:30 06:30 06:30 WBC 6.0 RBC 4.39 Hgb 12.2 D Hct 35.9 D MCV 81.8 MCH 27.8 MCHC 33.9 RDW 15.2 Plt Count 219 MPV 7.7 D Sodium 143 Potassium 4.2 Chloride 102 Carbon Dioxide 34 H Anion Gap 7 L BUN 8 D Creatinine 0.6 L Creat Clearance w eGFR > 60 Random Glucose 97 D Calcium 8.5 Total Bilirubin 0.2 D AST 14 L D ALT 37 Alkaline Phosphatase 73 D Total Protein 5.9 L D Albumin 3.1 L D RPR Titer Nonreactive awake/alert ambulating no acute distress Assessment: 06/24/17 10:29 withdrawal sx Plan: continue detox increase fluids citroma x one
[2017-06-24] MEDS ORDERED: ATORVASTATIN CA 20 MG TABLET (FP) PO SCH (22:00)
[2017-06-24] MEDS: traZODone HCL 50 MG TABLET (FP) PO SCH (22:49)
[2017-06-25] MEDS: THIAMINE HCL 100 MG TABLET (FP) PO SCH (00:02)
[2017-06-25] MEDS ORDERED: PANTOPRAZOLE 40 MG TABLET (FP) PO SCH (10:00)
[2017-06-25] MEDS ORDERED: CLINDAMYCIN PHOSPHATE 1% TOPICAL SOLUTION 30 ML BOTTLE TP SCH (10:00)
[2017-06-25] MEDS ORDERED: CLINDAMYCIN PHOSPHATE 1% TOPICAL GEL 30 GM TUBE TP SCH ×2 (10:00→22:00)
[2017-06-25] MEDS ORDERED: METHADONE HCL 5 MG TABLET (FOR DETOX USE ONLY) PO ONE ×2 (10:00)
--- NOTE | 2017-06-25 10:53 | PN ---
BHS Progress Note (SOAP) Subjective: skin breakout on forehead sweats feeling better and would like methadone decreased Objective: 06/25/17 10:53 Vital Signs Temperature 97 F L 06/25/17 09:32 Pulse Rate 75 06/25/17 09:32 Respiratory Rate 20 06/25/17 09:32 Blood Pressure 126/86 06/25/17 09:32 O2 Sat by Pulse Oximetry (%) Laboratory Tests 06/23/17 06/23/17 06/23/17 06:30 06:30 06:30 WBC 6.0 RBC 4.39 Hgb 12.2 D Hct 35.9 D MCV 81.8 MCH 27.8 MCHC 33.9 RDW 15.2 Plt Count 219 MPV 7.7 D Sodium 143 Potassium 4.2 Chloride 102 Carbon Dioxide 34 H Anion Gap 7 L BUN 8 D Creatinine 0.6 L Creat Clearance w eGFR > 60 Random Glucose 97 D Calcium 8.5 Total Bilirubin 0.2 D AST 14 L D ALT 37 Alkaline Phosphatase 73 D Total Protein 5.9 L D Albumin 3.1 L D RPR Titer Nonreactive awake/alert ambulating no acute distress Assessment: 06/25/17 11:21 mild withdrawal Plan: continue detox increase fluids clindamyacin gel to apply to affected area methadone decreased as per pt request d/c in am
[2017-06-25] MEDS: FLUoxetine HCL 20 MG CAPSULE (FP) PO SCH (11:08)
[2017-06-25] MEDS: PRENATAL VITAMINS W/ FOLIC ACID TABLET (FP) PO SCH (11:08)
[2017-06-25] MEDS: cloNIDine HCL 0.1 MG TABLET PO SCH (11:09)
[2017-06-25] MEDS ORDERED: diazePAM 5 MG TABLET PO PRN (12:56)
[2017-06-25] MEDS ORDERED: CYCLOBENZAPRINE HCL 10 MG TABLET (FP) PO PRN (13:00)
[2017-06-25] MEDS ORDERED: DOCUSATE SODIUM 100 MG CAPSULE (FP) PO SCH ×2 (14:00→14:35)
[2017-06-25 14:07] VITALS: BP 132/78; PULSE 77; TEMP 98.1
[2017-06-25] MEDS ORDERED: IBUPROFEN 400 MG TABLET (FP) PO PRN (14:34)
[2017-06-25] MEDS ORDERED: ACETAMINOPHEN 325 MG TABLET (FP) PO PRN (14:48)
[2017-06-25] MEDS ORDERED: diphenhydrAMINE HCL 50 MG CAPSULE PO PRN (14:49)
[2017-06-25] MEDS ORDERED: guaiFENesin/D-METHORPHAN HB 10 ML UNIT-DOSE CUPS PO PRN (14:50)
[2017-06-25] MEDS ORDERED: hydrOXYzine PAMOATE 25 MG CAPSULE (FP) PO PRN (14:50)
[2017-06-25] MEDS ORDERED: LOPERAMIDE HCL 2 MG CAPSULE PO PRN (14:51)
[2017-06-25] MEDS ORDERED: MAGNESIUM HYDROX 2400MG/30ML ORAL SUSPENSION 30 ML CUP PO PRN (15:31)
[2017-06-25] MEDS ORDERED: MAG HYDROX/AL HYDROX/SIMETH 30 ML UNIT-DOSE CUP PO PRN (15:31)
[2017-06-25] MEDS ORDERED: MENTHOL/PHENOL 1 EACH UD MM PRN (15:34)
[2017-06-25] MEDS ORDERED: MAGNESIUM CITRATE 300 ML BOTTLE PO PRN (15:34)
[2017-06-25] MEDS ORDERED: P-EPHED 60MG/TRIPROLIDI 2.5MG TABLET PO PRN ×2 (15:34→15:36)
--- NOTE | 2017-06-25 15:39 | PN ---
[facility] Progress Note Note: pt states is feeling better and has an opportunity to go to a rehab ( [facility]) and be there by 7am. Pt will be d/c today and he will go home then go to the rehab for further tx.
--- NOTE | 2017-06-25 15:40 | DS ---
[facility] Detox Discharge Summary Admission Date: 06/22/17 Discharge Date: 06/25/17 - History Present History: Opioid Dependence, Sedative Dependence - Physical Exam Results Vital Signs: Vital Signs Temperature 98.1 F 06/25/17 14:06 Pulse Rate 77 06/25/17 14:06 Respiratory Rate 18 06/25/17 14:06 Blood Pressure 132/78 06/25/17 14:06 O2 Sat by Pulse Oximetry (%) - Treatment Hospital Course: Detox Protocol Followed, Detoxed Safely, Responded well, Discharged Condition Good, Rehab Referral Accepted - Medication Discharge Medications: Ambulatory Orders Quetiapine Fumarate [Seroquel] 100 mg PO HS #30 tablet 03/17/17 Hydroxyzine Pamoate [Vistaril -] 50 mg PO TID #90 capsule 03/19/17 Atorvastatin Ca [Lipitor] 20 mg PO HS 06/22/17 Fluoxetine HCl [Prozac -] 20 mg PO DAILY 06/22/17 Haloperidol [Haldol -] 5 mg PO BID 06/22/17 Pantoprazole Sodium [Protonix -] 40 mg PO DAILY 06/22/17 Trazodone HCl [Desyrel -] 50 mg PO HS 06/22/17 Fluoxetine HCl [Prozac] 20 mg PO DAILY #30 capsule 06/23/17 Trazodone HCl 50 mg PO HS #30 tablet 06/23/17 - AMA Did Patient Leave Against Medical Advice: No ([facility]
[2017-06-25] MEDS ORDERED: THIAMINE HCL 100 MG TABLET (FP) PO SCH (22:00)
[2017-06-25] MEDS ORDERED: ATORVASTATIN CA 20 MG TABLET (FP) PO SCH (22:00)
[2017-06-25] MEDS ORDERED: traZODone HCL 50 MG TABLET (FP) PO SCH (22:00)
[2017-06-25] MEDS ORDERED: cloNIDine HCL 0.1 MG TABLET PO SCH (22:00)
[2017-06-26] MEDS ORDERED: METHADONE HCL 5 MG TABLET (FOR DETOX USE ONLY) PO ONE (06:00)
[2017-06-26] MEDS ORDERED: METHADONE HCL 10 MG TABLET (FOR DETOX USE ONLY) PO ONE (10:00)
[2017-06-26] MEDS ORDERED: FLUoxetine HCL 20 MG CAPSULE (FP) PO SCH (10:00)
[2017-06-27] MEDS ORDERED: METHADONE HCL 5 MG TABLET (FOR DETOX USE ONLY) PO ONE (06:00)
== END 2017-06-25 16:10 | disposition home or self-care (01) | DRG 773 ==
LOC: YASAS 14:39 → Y6N 17:45 → UNDODISIN 06-25 09:25
PROVIDERS: ADMIT Internal Medicine; ATTEND Internal Medicine
PROC: HZ2ZZZZ Detoxification Services for Substance Abuse Treatment (ICD-10-PCS; principal; 2017-06-22)
DX: F11.23 Opioid dependence with withdrawal (principal); F13.230 Sedative, hypnotic or anxiolytic dependence with withdrawal, uncomplicated; F17.210 Nicotine dependence, cigarettes, uncomplicated; F19.24 Other psychoactive substance dependence with psychoactive substance-induced mood disorder; F33.9 Major depressive disorder, recurrent, unspecified; F41.8 Other specified anxiety disorders; G47.00 Insomnia, unspecified
CPT/HCPCS: 36415; 80053; 85027; 86593; 93005; 93010

== ENCOUNTER 2017-09-04 13:15 | Inpatient (IN) | payer OTHER ==
[2017-09-04 17:11] VITALS: BMI 33.3
--- NOTE | 2017-09-04 18:08 | HP ---
COWS - Scale Resting Pulse: 2= [place] 101-120 Sweatin= Chills/Flushing Restless Observation: 3= Extraneous Movement Pupil Size: 0= Normal to Room Light Bone or Joint Aches: 2= Severe Diffuse Aches Runny Nose/ Eye Tearin= Runny Nose/Eyes GI Upset > 30mins: 1= Stomach Cramp Tremor Observation: 2= Slight Tremor Visible Yawning Observation: 0= None Anxiety or Irritability: 2=Irritable/Anxious Goose Flesh Skin: 0=Smooth Skin COWS Score: 15 Admission [facility] Chief Complaint: WITHDRAWAL SX Allergies/Adverse Reactions: Allergies Allergy/AdvReac Type Severity Reaction Status Date / Time No Known Allergies Allergy Verified 09/04/17 17:23 History of Present Illness: 37 YEARS OLD MALE WITH LONG HISTORY OF OPIATE DEPENDENCE HAS HYPERLIPIDEMIA AND BIPOLAR II IS ADMITTED TO DETOX Exam Limitations: No Limitations - Ebola screening Have you traveled outside of the country in the last 21 days: No (N) Have you had contact with anyone from an Ebola affected area: No Have you been sick,other than usual withdrawal symptoms: No Do you have a fever: No - Review of Systems Constitutional: Changes in sleep, Weight Stable EENT: reports: No Symptoms Reported Respiratory: reports: No Symptoms reported Cardiac: reports: No Symptoms Reported GI: reports: Nausea, Poor Fluid Intake, Abdominal cramping : reports: No Symptoms Reported Musculoskeletal: reports: Back Pain, Joint Pain, Muscle Pain, Neck Pain Integumentary: reports: Change in Color (LEFT FOR ARM IV OPIATE) Neuro: reports: Tremors Endocrine: reports: No Symptoms Reported Hematology: reports: No Symptoms Reported Psychiatric: reports: Judgement Intact, Orientated x3, Anxious, Depressed Other Systems: Reviewed and Negative Patient History - Patient Medical History Hx Anemia: No Hx Asthma: No Hx Chronic Obstructive Pulmonary Disease (COPD): No Hx Cancer: No Hx Cardiac Disorders: No Hx Congestive Heart Failure: No Hx Hypertension: No Hx Hypercholesterolemia: No Hx Pacemaker: No HX Cerebrovascular Accident: No Hx Seizures: No Hx Dementia: No Hx Diabetes: No Hx Gastrointestinal Disorders: No Hx Liver Disease: No Hx Genitourinary Disorders: No Hx Sexually Transmitted Disorders: No Hx Renal Disease (ESRD): No Hx Thyroid Disease: No Hx Human Immunodeficiency Virus (HIV): No (NEGATIVE HX LAST 03/16/17) Hx Hepatitis C: No Hx Depression: No Hx Suicide Attempt: No Hx Bipolar Disorder: Yes Hx Schizophrenia: No - Patient Surgical History Past Surgical History: Yes Hx Neurologic Surgery: No Hx Cataract Extraction: No Hx Cardiac Surgery: No Hx Lung Surgery: No Hx Breast Surgery: No Hx Breast Biopsy: No Hx Abdominal Surgery: Yes (gastric sleeve sx 05/[address] [facility]) Hx Appendectomy: No Hx Cholecystectomy: No Hx Genitourinary Surgery: No Hx Orthopedic Surgery: No Anesthesia Reaction: No - PPD History Previous Implant?: Yes Documented Results: Negative w/proof Implanted On Prior R Admission?: Yes Date: 03/18/17 Results: 0 mm PPD to be Administered?: No - Smoking Cessation Smoking history: Former smoker Have you smoked in the past 12 months: No Aproximately how many cigarettes per day: 0 Cigars Per Day: 0 Hx Chewing Tobacco Use: No Initiated information on smoking cessation: No - Substance & Tx. History Hx Alcohol Use: No Hx Substance Use: Yes Substance Use Type: Heroin - Substances Abused Heroin Route: Injection Frequency: Daily Amount used: 10 BAGS Age of first use: 26 Date of Last Use: 09/04/17 Alcohol Route: Oral Frequency: 1-2 times per week Amount used: 1 PINT OF [place] Age of first use: 19 Date of Last Use: 09/04/17 Family Disease History - Family Disease History Family History: Unremarkable Family Disease History: Diabetes: Grandparent Admission Physical Exam BHS - Vital Signs Vital Signs: Vital Signs - 24 hr 09/04/17 17:09 Temperature 96.8 F L Pulse Rate 102 H Respiratory 20 Rate Blood Pressure 136/91 - Physical General Appearance: Yes: Appropriately Dressed, Mild Distress, Obese, Tremorous , Irritable, Sweating, Anxious HEENTM: Yes: Hearing grossly Normal, Normal ENT Inspection, Normocephalic, Normal Voice Respiratory: Yes: Chest Non-Tender, Lungs Clear, Normal Breath Sounds, No Respiratory Distress, No Accessory Muscle Use Neck: Yes: Supple, Trachea in good position Breast: Yes: Breasts Symetrical Cardiology: Yes: Regular Rhythm, S1, S2, Tachycardia Abdominal: Yes: Normal Bowel Sounds, Non Tender, Soft Genitourinary: Yes: Within Normal Limits Back: Yes: Normal Inspection Musculoskeletal: Yes: full range of Motion, Gait Steady, Back pain, Muscle Pain Extremities: Yes: Normal Range of Motion, Non-Tender, Tremors Neurological: Yes: Fully Oriented, Alert, Motor Strength 5/5, Normal Response, Depressed Affect Integumentary: Yes: Warm, Track Lewis Lymphatic: Yes: Within Normal Limits - Diagnostic (1) Opioid dependence with withdrawal Current Visit: Yes Status: Acute (2) Hyperlipidemia Current Visit: Yes Status: Chronic Qualifiers: Hyperlipidemia type: pure hypercholesterolemia Qualified Code(s): E78.00 - Pure hypercholesterolemia, unspecified; E78.00 - Pure hypercholesterolemia, unspecified; E78.00 - Pure hypercholesterolemia, unspecified; E78.0 - Pure hypercholesterolemia (3) Bipolar II disorder Current Visit: Yes Status: Suspected (4) Gastric bypass status for obesity Current Visit: Yes Status: Resolved Comment: 04/2017 Cleared for Admission [facility] - Detox or Rehab [facility] Level of Care: Medically Managed Detox Regimen/Protocol: Methadone [facility] Breath Alcohol Content Breath Alcohol Content: 0 Urine Drug Screen - Results Drug Screen Negative: No Urine Drug Screen Results: OPI-Opiates, BZO-Benzodiazepines
[2017-09-04] MEDS ORDERED: MENTHOL/PHENOL 1 EACH UD MM PRN (18:09)
[2017-09-04] MEDS ORDERED: ACETAMINOPHEN 325 MG TABLET (FP) PO PRN (18:09)
[2017-09-04] MEDS ORDERED: IBUPROFEN 400 MG TABLET (FP) PO PRN (18:09)
[2017-09-04] MEDS ORDERED: P-EPHED 60MG/TRIPROLIDI 2.5MG TABLET PO PRN (18:09)
[2017-09-04] MEDS ORDERED: LOPERAMIDE HCL 2 MG CAPSULE PO PRN (18:09)
[2017-09-04] MEDS ORDERED: guaiFENesin/D-METHORPHAN HB 10 ML UNIT-DOSE CUPS PO PRN (18:09)
[2017-09-04] MEDS ORDERED: MAGNESIUM HYDROX 2400MG/30ML ORAL SUSPENSION 30 ML CUP PO PRN (18:09)
[2017-09-04] MEDS ORDERED: MAG HYDROX/AL HYDROX/SIMETH 30 ML UNIT-DOSE CUP PO PRN (18:09)
[2017-09-04] MEDS ORDERED: MAGNESIUM CITRATE 300 ML BOTTLE PO PRN (18:09)
[2017-09-04] MEDS ORDERED: METHADONE HCL 10 MG TABLET (FOR DETOX USE ONLY) PO ONE ×2 (18:45→23:00)
[2017-09-04] MEDS: diazePAM 5 MG TABLET PO PRN (19:28)
[2017-09-04] MEDS: ATORVASTATIN CA 20 MG TABLET (FP) PO SCH (22:32)
[2017-09-04] MEDS: THIAMINE HCL 100 MG TABLET (FP) PO SCH (22:32)
[2017-09-05] MEDS ORDERED: METHADONE HCL 10 MG TABLET (FOR DETOX USE ONLY) PO ONE (10:00)
[2017-09-05] MEDS: PRENATAL VITAMINS W/ FOLIC ACID TABLET (FP) PO SCH (10:19)
[2017-09-05 11:06] LABS: MCH 27.8 pg (25.7-33.7); MCHC 33.3 g/dl (32.0-35.9); MEAN CELL VOLUME 83.4 fl (80-96); MEAN PLT VOLUME 8.2 fl (7.5-11.1); PLATELET COUNT 186 K/MM3 (134-434); RDW 13.3 % (11.9-15.9); WHITE BLOOD COUNT 5.2 K/mm3 (4.0-10.0)
[2017-09-05 11:07] LABS: ALBUMIN 3.4 g/dl (3.4-5.0); ANION GAP 6 (8-16); CO2 33 mmol/L (21-32); CREATININE 0.7 mg/dL (0.7-1.3); GLUCOSE,RANDOM 94 mg/dL (74-106); SGOT/AST 12 U/L (15-37); SGPT/ALT 20 U/L (12-78)
[2017-09-05] MEDS ORDERED: ONDANSETRON *ODT* 4 MG TABLET SL PRN (11:33)
--- NOTE | 2017-09-05 11:39 | CONSULT ---
[facility] Psychiatric Consult - Data Date of interview: 09/05/17 Admission source: [facility] Identifying data: Another admission to [facility] for this 37 y/o male seeking detox treatment on for heroin dependence.Patient is single,a father of two,domiciled,unemployed and supported on Public Assistance. Substance Abuse History: Confirmed by patient in this session. Smoking Cessation. Smoking history: Former smoker. Have you smoked in the past 12 months: No. Aproximately how many cigarettes per day: 0. Cigars Per Day: 0. Hx Chewing Tobacco Use: No. Initiated information on smoking cessation: No. - Substance & Tx. History. Hx Alcohol Use: No. Hx Substance Use: Yes. Substance Use Type: Heroin. - Substances Abused. Heroin. Route: Injection. Frequency: Daily. Amount used: 10 BAGS. Age of first use: 26. Date of Last Use: 09/04/17. Alcohol. Route: Oral. Frequency: 1-2 times per week. Amount used: 1 PINT OF [place]. Age of first use: 19. Date of Last Use: 09/04/17 Medical History: No medical problems. Psychiatric History: One psychiatric hospitalization at [facility].Diagnosed with MDD and Anxiety Disorder.Mr Sea reports current OPD care at the [facility] in the [place].Patient declines to resume his medications (prozac,trazodone,haldol).Patient denies history of suicide attempts. Physical/Sexual Abuse/Trauma History: Denies. Additional Comment: Urine Drug Screen Results: OPI-Opiates, BZO-Benzodiazepines Mental Status Exam - Mental Status Exam Alert and Oriented to: Time, Place, Person Cognitive Function: Good Patient Appearance: Well Groomed (tattoos on forearms) Mood: Hopeful, Euthymic Affect: Appropriate, Normal Range Patient Behavior: Appropriate, Cooperative Speech Pattern: Clear Voice Loudness: Normal Thought Process: Goal Oriented Thought Disorder: Not Present Hallucinations: Denies Suicidal Ideation: Denies Homicidal Ideation: Denies Insight/Judgement: Poor Sleep: Poorly, Difficulty falling asleep (wants seroquel) Appetite: Good Muscle strength/Tone: Normal Gait/Station: Normal Psychiatric Findings - Problem List ([place] 1, 2,3) (1) Opioid dependence with withdrawal Current Visit: Yes Status: Acute (2) Substance induced mood disorder Current Visit: Yes Status: Acute (3) Hyperlipidemia Current Visit: Yes Status: Chronic Qualifiers: Hyperlipidemia type: pure hypercholesterolemia Qualified Code(s): E78.00 - Pure hypercholesterolemia, unspecified; E78.00 - Pure hypercholesterolemia, unspecified; E78.00 - Pure hypercholesterolemia, unspecified; E78.0 - Pure hypercholesterolemia (4) Insomnia Current Visit: Yes Status: Acute - Initial Treatment Plan Initial Treatment Plan: Psychoeducation.Detoxification.Seroquel 50 mg po hs ( patient's request).Side effects/benefits discussed with patient.Observation.
--- NOTE | 2017-09-05 12:53 | EKG ---
Test Reason : Blood Pressure : / mmHG Vent. Rate : 075 BPM Atrial Rate : 075 BPM P-R Int : 156 ms QRS Dur : 098 ms QT Int : 366 ms P-R-T Axes : 062 019 015 degrees QTc Int : 408 ms NORMAL SINUS RHYTHM NORMAL ECG WHEN COMPARED WITH ECG OF 22-JUN-2017 18:42, NO SIGNIFICANT CHANGE WAS FOUND Confirmed by ROCKY PFEIFFER MD ([id number]) on 09/05/2017 12:52:50 PM Referred By: Confirmed By:ROCKY PFEIFFER MD
[2017-09-05 12:56] LABS: ALK PHOS 69 U/L (45-117); BILIRUBIN,TOTAL 0.4 mg/dL (0.2-1.0); TOT PROT 6.9 g/dl (6.4-8.2)
[2017-09-05 13:16] LABS: CALCIUM 8.9 mg/dL (8.5-10.1)
[2017-09-05] MEDS: CALCIUM CARBONATE 650 MG TABLET PO SCH (13:31)
[2017-09-05] MEDS ORDERED: POTASSIUM CHLORIDE TABS 20 MEQ TABLET.ER (FP) PO ONE (16:02)
--- NOTE | 2017-09-05 16:03 | PN ---
BHS COWS - Scale Resting Pulse: 0= [place] 80 or Below Sweatin= Chills/Flushing Restless Observation: 1= Difficult to Sit Still Pupil Size: 0= Normal to Room Light Bone or Joint Aches: 2= Severe Diffuse Aches Runny Nose/ Eye Tearin= Nasal Congestion GI Upset > 30mins: 1= Stomach Cramp Tremor Observation of Outstretched Hands: 2= Slight Tremor Visible Yawning Observation: 1= 1-2x During Session Anxiety or Irritability: 2=Irritable/Anxious Goose Flesh Skin: 3=Piloerection COWS Score: 14 S Progress Note (SOAP) Subjective: Vomiting, Tremors, Body Aches. Objective: PT. A & O X 3, OBSERVED AMBULATING ON UNIT. NO ACUTE DISTRESS. 09/05/17 16:00 Vital Signs Temperature 96.8 F L 09/05/17 10:00 Pulse Rate 72 09/05/17 10:00 Respiratory Rate 18 09/05/17 10:00 Blood Pressure 116/69 09/05/17 10:00 O2 Sat by Pulse Oximetry (%) Laboratory Tests 09/05/17 09/05/17 09/05/17 08:00 08:00 08:00 WBC 5.2 RBC 4.58 Hgb 12.7 Hct 38.2 MCV 83.4 MCH 27.8 MCHC 33.3 RDW 13.3 D Plt Count 186 MPV 8.2 Sodium 141 Potassium 3.4 L Chloride 102 Carbon Dioxide 33 H Anion Gap 6 L BUN 11 D Creatinine 0.7 Creat Clearance w eGFR > 60 Random Glucose 94 Calcium 8.9 Total Bilirubin 0.4 D AST 12 L ALT 20 D Alkaline Phosphatase 69 Total Protein 6.9 Albumin 3.4 RPR Titer Nonreactive LABS NOTED. UA RESULTS PENDING. 09/05/17 16:02 Assessment: 09/05/17 16:00 WITHDRAWAL SYMPTOMS. Plan: CONTINUE DETOX. K-DUR, 20 MEQ PO X 1 NOW; THEN 20 MEQ PO BID @1000, 1800 AFTER. PRN ZOFRAN SL FOR VOMITING.
[2017-09-05] MEDS: diazePAM 5 MG TABLET PO PRN ×2 (17:43→22:20)
[2017-09-05] MEDS: POTASSIUM CHLORIDE TABS 20 MEQ TABLET.ER (FP) PO SCH (17:43)
[2017-09-05] MEDS: THIAMINE HCL 100 MG TABLET (FP) PO SCH (22:20)
[2017-09-05] MEDS: QUEtiapine FUMARATE 50 MG TABLET PO SCH (22:20)
[2017-09-05] MEDS: ATORVASTATIN CA 20 MG TABLET (FP) PO SCH (22:20)
[2017-09-05] MEDS: diphenhydrAMINE HCL 50 MG CAPSULE PO PRN (22:21)
[2017-09-06] MEDS ORDERED: METHADONE HCL 5 MG TABLET (FOR DETOX USE ONLY) PO ONE (10:00)
[2017-09-06] MEDS: PRENATAL VITAMINS W/ FOLIC ACID TABLET (FP) PO SCH (10:45)
[2017-09-06] MEDS: POTASSIUM CHLORIDE TABS 20 MEQ TABLET.ER (FP) PO SCH ×2 (10:45→17:11)
[2017-09-06 11:56] LABS: URINE APPEARANCE CLEAR; URINE BILIRUBIN NEGATIVE (NEGATIVE); URINE BLOOD NEGATIVE (NEGATIVE); URINE COLOR YELLOW; URINE GLUCOSE (UA) NEGATIVE (NEGATIVE); URINE KETONE NEGATIVE (NEGATIVE); URINE NITRITE NEGATIVE (NEGATIVE); URINE PROTEIN NEGATIVE (NEGATIVE); URINE UROBILINOGEN NEGATIVE mg/dL (0.2-1.0)
[2017-09-06] MEDS ORDERED: TRIMETHOBENZAMIDE HCL 200MG/2ML INJ IM PRN (12:03)
--- NOTE | 2017-09-06 12:06 | PN ---
BHS COWS - Scale Resting Pulse: 0= [place] 80 or Below Sweatin= Chills/Flushing Restless Observation: 3= Extraneous Movement Pupil Size: 2= Moderately Dilated Bone or Joint Aches: 4=Acute Joint/Muscle Pain Runny Nose/ Eye Tearin= Nasal Congestion GI Upset > 30mins: 3= Vomiting/Diarrhea Tremor Observation of Outstretched Hands: 2= Slight Tremor Visible Yawning Observation: 1= 1-2x During Session Anxiety or Irritability: 2=Irritable/Anxious Goose Flesh Skin: 0=Smooth Skin COWS Score: 19 BHS Progress Note (SOAP) Subjective: ANXIETY,SWEATS,CHILLS,NAUSEA/VOMITING. Objective: 09/06/17 12:05 Vital Signs Temperature 97.9 F 09/06/17 10:09 Pulse Rate 66 09/06/17 10:09 Respiratory Rate 18 09/06/17 10:09 Blood Pressure 111/71 09/06/17 10:09 O2 Sat by Pulse Oximetry (%) Laboratory Last Values WBC 5.2 K/mm3 (4.0-10.0) 09/05/17 08:00 RBC 4.58 M/mm3 (4.00-5.60) 09/05/17 08:00 Hgb 12.7 GM/dL (11.7-16.9) 09/05/17 08:00 Hct 38.2 % (35.4-49) 09/05/17 08:00 MCV 83.4 fl (80-96) 09/05/17 08:00 MCH 27.8 pg (25.7-33.7) 09/05/17 08:00 MCHC 33.3 g/dl (32.0-35.9) 09/05/17 08:00 RDW 13.3 % (11.9-15.9) D 09/05/17 08:00 Plt Count 186 K/MM3 (134-434) 09/05/17 08:00 MPV 8.2 fl (7.5-11.1) 09/05/17 08:00 Sodium 141 mmol/L (136-145) 09/05/17 08:00 Potassium 3.4 mmol/L (3.5-5.1) L 09/05/17 08:00 Chloride 102 mmol/L (98-107) 09/05/17 08:00 Carbon Dioxide 33 mmol/L (21-32) H 09/05/17 08:00 Anion Gap 6 (8-16) L 09/05/17 08:00 BUN 11 mg/dL (7-18) D 09/05/17 08:00 Creatinine 0.7 mg/dL (0.7-1.3) 09/05/17 08:00 Creat Clearance w eGFR > 60 (>60) 09/05/17 08:00 Random Glucose 94 mg/dL (74-106) 09/05/17 08:00 Calcium 8.9 mg/dL (8.5-10.1) 09/05/17 08:00 Total Bilirubin 0.4 mg/dL (0.2-1.0) D 09/05/17 08:00 AST 12 U/L (15-37) L 09/05/17 08:00 ALT 20 U/L (12-78) D 09/05/17 08:00 Alkaline Phosphatase 69 U/L (45-117) 09/05/17 08:00 Total Protein 6.9 g/dl (6.4-8.2) 09/05/17 08:00 Albumin 3.4 g/dl (3.4-5.0) 09/05/17 08:00 Urine Color Yellow 09/06/17 11:31 Urine Appearance Clear 09/06/17 11:31 Urine pH 8.0 (5.0-8.0) D 09/06/17 11:31 Urine Protein Negative (NEGATIVE) 09/06/17 11:31 Urine Glucose (UA) Negative (NEGATIVE) 09/06/17 11:31 Urine Ketones Negative (NEGATIVE) 09/06/17 11:31 Urine Blood Negative (NEGATIVE) 09/06/17 11:31 Urine Nitrite Negative (NEGATIVE) 09/06/17 11:31 Urine Bilirubin Negative (NEGATIVE) 09/06/17 11:31 Urine Urobilinogen Negative mg/dL (0.2-1.0) 09/06/17 11:31 RPR Titer Nonreactive (NONREACTIVE) 09/05/17 08:00 Assessment: 09/06/17 12:05 WITHDRAWAL SX Plan: CONTINUE DETOX TIGAN IM DIRECTED
[2017-09-06] MEDS: CALCIUM CARBONATE 650 MG TABLET PO SCH (13:40)
[2017-09-06 15:25] LABS: URINE LEUK ESTERASE Negative (NEGATIVE)
[2017-09-06] MEDS: diazePAM 5 MG TABLET PO PRN ×2 (17:11→22:15)
[2017-09-06] MEDS: ATORVASTATIN CA 20 MG TABLET (FP) PO SCH (22:16)
[2017-09-06] MEDS: THIAMINE HCL 100 MG TABLET (FP) PO SCH (22:16)
[2017-09-06] MEDS: QUEtiapine FUMARATE 50 MG TABLET PO SCH (22:16)
[2017-09-06] MEDS: diphenhydrAMINE HCL 50 MG CAPSULE PO PRN (22:16)
[2017-09-07] MEDS ORDERED: METHADONE HCL 5 MG TABLET (FOR DETOX USE ONLY) PO ONE (10:00)
[2017-09-07] MEDS: PRENATAL VITAMINS W/ FOLIC ACID TABLET (FP) PO SCH (10:21)
[2017-09-07] MEDS: POTASSIUM CHLORIDE TABS 20 MEQ TABLET.ER (FP) PO SCH ×2 (10:21→17:07)
--- NOTE | 2017-09-07 11:51 | PN ---
BHS Progress Note (SOAP) Subjective: Body Aches, Vomiting, Sweating, Tremors. Objective: PT. A & O X 3, OBSERVED AMBULATING ON UNIT. NO ACUTE DISTRESS. 09/07/17 11:50 Vital Signs Temperature 97.6 F 09/07/17 09:46 Pulse Rate 71 09/07/17 09:46 Respiratory Rate 20 09/07/17 09:46 Blood Pressure 118/65 09/07/17 09:46 O2 Sat by Pulse Oximetry (%) Laboratory Tests 09/05/17 09/05/17 09/05/17 08:00 08:00 08:00 WBC 5.2 RBC 4.58 Hgb 12.7 Hct 38.2 MCV 83.4 MCH 27.8 MCHC 33.3 RDW 13.3 D Plt Count 186 MPV 8.2 Sodium 141 Potassium 3.4 L Chloride 102 Carbon Dioxide 33 H Anion Gap 6 L BUN 11 D Creatinine 0.7 Creat Clearance w eGFR > 60 Random Glucose 94 Calcium 8.9 Total Bilirubin 0.4 D AST 12 L ALT 20 D Alkaline Phosphatase 69 Total Protein 6.9 Albumin 3.4 Urine Color Urine Appearance Urine pH Ur Specific [place] Urine Protein Urine Glucose (UA) Urine Ketones Urine Blood Urine Nitrite Urine Bilirubin Urine Urobilinogen Ur Leukocyte Esterase RPR Titer Nonreactive 09/06/17 11:31 WBC RBC Hgb Hct MCV MCH MCHC RDW Plt Count MPV Sodium Potassium Chloride Carbon Dioxide Anion Gap BUN Creatinine Creat Clearance w eGFR Random Glucose Calcium Total Bilirubin AST ALT Alkaline Phosphatase Total Protein Albumin Urine Color Yellow Urine Appearance Clear Urine pH 8.0 D Ur Specific [place] 1.015 Urine Protein Negative Urine Glucose (UA) Negative Urine Ketones Negative Urine Blood Negative Urine Nitrite Negative Urine Bilirubin Negative Urine Urobilinogen Negative Ur Leukocyte Esterase Negative RPR Titer LABS NOTED. Assessment: 09/07/17 11:51 WITHDRAWAL SYMPTOMS. HYPOKALEMIA. Plan: CONTINUE DETOX. INCREASE DAILY PO FLUID INTAKE.
[2017-09-07] MEDS: CALCIUM CARBONATE 650 MG TABLET PO SCH (15:00)
[2017-09-07] MEDS: diazePAM 5 MG TABLET PO PRN (17:07)
[2017-09-07] MEDS: diphenhydrAMINE HCL 50 MG CAPSULE PO PRN (22:42)
[2017-09-07] MEDS: QUEtiapine FUMARATE 50 MG TABLET PO SCH (22:42)
[2017-09-07] MEDS: ATORVASTATIN CA 20 MG TABLET (FP) PO SCH (22:42)
[2017-09-07] MEDS: THIAMINE HCL 100 MG TABLET (FP) PO SCH (22:42)
[2017-09-08 09:12] VITALS: BP 143/104; PULSE 76; TEMP 97.3
[2017-09-08] MEDS ORDERED: METHADONE HCL 5 MG TABLET (FOR DETOX USE ONLY) PO ONE (10:00)
[2017-09-08] MEDS ORDERED: METHADONE HCL 10 MG TABLET (FOR DETOX USE ONLY) PO ONE (10:00)
[2017-09-08] MEDS: PRENATAL VITAMINS W/ FOLIC ACID TABLET (FP) PO SCH (10:15)
[2017-09-08] MEDS: POTASSIUM CHLORIDE TABS 20 MEQ TABLET.ER (FP) PO SCH (10:15)
--- NOTE | 2017-09-08 13:04 | DS ---
[facility] Detox Discharge Summary Admission Date: 09/04/17 Discharge Date: 09/08/17 - History Present History: Opioid Dependence Additional Comments: PATIENT CURRENTLY REPORTS THAT DETOX SYMPTOMS ARE MINIMAL AND THAT HE FEELS WELL OVERALL. PATIENT GOING TO THE [facility] ([place], [place] FOR AFTERCARE. PATIENT WAS DISCHARGED FROM DETOX UNIT IN STABLE MEDICAL CONDITION. Pertinent Past History: Bipolar disorder, Hyperlipidemia, History of Gastric Bypass surgery, Insomnia. - Physical Exam Results Vital Signs: Vital Signs Temperature 97.3 F L 09/08/17 09:11 Pulse Rate 76 09/08/17 09:11 Respiratory Rate 18 09/08/17 09:11 Blood Pressure 143/104 09/08/17 09:11 O2 Sat by Pulse Oximetry (%) Pertinent Admission Physical Exam Findings: WITHDRAWAL SYMPTOMS. Laboratory Tests 09/05/17 09/05/17 09/05/17 08:00 08:00 08:00 WBC 5.2 RBC 4.58 Hgb 12.7 Hct 38.2 MCV 83.4 MCH 27.8 MCHC 33.3 RDW 13.3 D Plt Count 186 MPV 8.2 Sodium 141 Potassium 3.4 L Chloride 102 Carbon Dioxide 33 H Anion Gap 6 L BUN 11 D Creatinine 0.7 Creat Clearance w eGFR > 60 Random Glucose 94 Calcium 8.9 Total Bilirubin 0.4 D AST 12 L ALT 20 D Alkaline Phosphatase 69 Total Protein 6.9 Albumin 3.4 Urine Color Urine Appearance Urine pH Ur Specific [place] Urine Protein Urine Glucose (UA) Urine Ketones Urine Blood Urine Nitrite Urine Bilirubin Urine Urobilinogen Ur Leukocyte Esterase RPR Titer Nonreactive 09/06/17 11:31 WBC RBC Hgb Hct MCV MCH MCHC RDW Plt Count MPV Sodium Potassium Chloride Carbon Dioxide Anion Gap BUN Creatinine Creat Clearance w eGFR Random Glucose Calcium Total Bilirubin AST ALT Alkaline Phosphatase Total Protein Albumin Urine Color Yellow Urine Appearance Clear Urine pH 8.0 D Ur Specific [place] 1.015 Urine Protein Negative Urine Glucose (UA) Negative Urine Ketones Negative Urine Blood Negative Urine Nitrite Negative Urine Bilirubin Negative Urine Urobilinogen Negative Ur Leukocyte Esterase Negative RPR Titer LABS NOTED. - Treatment Hospital Course: Detox Protocol Followed, Detoxed Safely, Responded well, Discharged Condition Good Patient has Accepted a Rehab Referral to: PATIENT GOING TO [facility] ([place], [place] - Medication Discharge Medications: Ambulatory Orders Atorvastatin Ca [Lipitor] 20 mg PO HS 06/22/17 Fluoxetine HCl [Prozac -] 20 mg PO DAILY 06/22/17 Pantoprazole Sodium [Protonix -] 40 mg PO DAILY 06/22/17 Trazodone HCl [Desyrel -] 50 mg PO HS 06/22/17 Calcium Carbonate [Calcium] 500 mg PO DAILY 09/04/17 Quetiapine Fumarate [Seroquel -] 50 mg PO HS #30 tablet 09/05/17 - Diagnosis (1) Insomnia Status: Acute Qualifiers: Insomnia type: unspecified Qualified Code(s): G47.00 - Insomnia, unspecified; G47.00 - Insomnia, unspecified (2) Nicotine dependence Status: Chronic Qualifiers: Nicotine product type: cigarettes Substance use status: uncomplicated Qualified Code(s): F17.210 - Nicotine dependence, cigarettes, uncomplicated; F17.210 - Nicotine dependence, cigarettes, uncomplicated (3) Opioid dependence with withdrawal Status: Acute (4) Substance induced mood disorder Status: Acute (5) Hyperlipidemia Status: Chronic Qualifiers: Hyperlipidemia type: pure hypercholesterolemia Qualified Code(s): E78.00 - Pure hypercholesterolemia, unspecified; E78.00 - Pure hypercholesterolemia, unspecified; E78.00 - Pure hypercholesterolemia, unspecified; E78.0 - Pure hypercholesterolemia (6) Status post gastric bypass for obesity Status: Resolved - AMA Did Patient Leave Against Medical Advice: No
[2017-09-09] MEDS ORDERED: METHADONE HCL 5 MG TABLET (FOR DETOX USE ONLY) PO ONE (06:00)
== END 2017-09-08 10:33 | disposition home or self-care (01) | DRG 773 ==
LOC: YASAS 13:15 → Y3N 18:09
PROVIDERS: ADMIT Internal Medicine; ATTEND Internal Medicine
PROC: HZ2ZZZZ Detoxification Services for Substance Abuse Treatment (ICD-10-PCS; principal; 2017-09-04)
DX: F11.23 Opioid dependence with withdrawal (principal); F17.210 Nicotine dependence, cigarettes, uncomplicated; F19.24 Other psychoactive substance dependence with psychoactive substance-induced mood disorder; F31.81 Bipolar II disorder; G47.00 Insomnia, unspecified; E78.00 Pure hypercholesterolemia, unspecified; Z98.84 Bariatric surgery status
CPT/HCPCS: 36415; 80053; 81003; 85027; 86593; 93005; 93010